=== PATIENT | female | born 1995 | race Caucasian/White ===

== ENCOUNTER 2024-11-23 08:17 | Emergency (ER) | payer BC, SELFPAY ==
[2024-11-23 08:18] VITALS: BP 134/90
--- NOTE | 2024-11-23 08:26 | ED.GENMED ---
History of Present Illness
General
Chief Complaint: Abdominal Symptoms
Time Seen by Provider: 11/23/24 08:26
History of Present Illness
History of Present Illness:
TIME OF INITIAL ENCOUNTER: 8:30 AM
HPI: Patient presents with vomiting and diarrhea over the last 8 hours. She had a cheese pizza last night around 8 PM. Boyfriend did not have the same thing to eat. At 11 PM, her symptoms started. She vomited about every 15 minutes all night
long. She feels very dehydrated. She has also been having some epigastric discomfort that she thinks is related to all the vomiting. She has been having diarrhea as well. She also has some lower discomfort as well. She called her primary care
doctor who wanted her to come in here for further evaluation.
EXAM:
GENERAL: Well appearing but appears slightly uncomfortable
HEENT: Dry oral mucosa
CARDIOVASCULAR: No murmurs, tachycardic heart rate, regular rhythm, No chest wall tenderness
PULMONARY: No respiratory distress, breath sounds are clear and equal
ABDOMEN: Soft with no peritoneal signs, minimal epigastric tenderness, elevated BMI
NEUROLOGIC: Excellent strength all extremities, no coordination deficits
PSYCHIATRIC: Appropriate mental status, normal insight and judgement
EXTREMITIES: Nontender, no edema, moves all extremities equally
SKIN: No rash, no lesions
NUMBER AND COMPLEXITY OF PROBLEMS ADDRESSED AT THE ENCOUNTER
� Chronic conditions affecting care: WPW
� Acute Exacerbation and/or Progression of Chronic Illness: This is an acute problem
� Differential Diagnosis includes: Dehydration, CORONA, viral gastroenteritis, foodborne illness, GERD, esophagitis, very low suspicion for appendicitis as pain is upper
AMOUNT AND/OR COMPLEXITY OF DATA TO BE REVIEWED AND ANALYZED
� I performed an independent evaluation of and my interpretation is:
EKG: Sinus 124, no clear evidence for WPW, RSR prime pattern with associated ST abnormality
CT:
X-rays:
Laboratory Studies: White count is 16.4, hemoglobin is 15.5, bicarb is low at 18, hCG negative
Other:
� Review of other/old records: EKG from 06/28/2020 suggested WPW (delta wave)
� Clinical information was obtained by an independent historian: I spoke to boyienjad at bedside
� Prescriptions/Medications Considered but not given:
� Further testing considered but not performed: See below
RISK OF COMPLICATIONS AND/OR MORBIDITY OR MORTALITY OF PATIENT MANAGEMENT
� Social determinants of health affecting care: Lives at home
� Discussion with other providers:
� Escalation of care including admission/observation vs risk of discharge considered: The patient primarily has vomiting with some diarrhea. She has mild epigastric pain and tenderness. She is given fluids, Zofran, Toradol, and
Pepcid. She arrived tachycardic and appears somewhat dehydrated.
ANY OTHER UPDATES:
9:40 AM: I reassessed patient. The patient tells me that she now feels 'infinitely' better. She appears comfortable. She did receive fluids and heart rate has improved. She does prefer to have a prescription for Zofran at home. Bicarb is noted
to be low. Leukocytosis noted but overall she is significant proved therefore we will hold off on imaging studies.
Past History
Past History
ED Past Medical History: Other ([id number])
ED Past Surgical History: Cardiac (AV canal repair)
Social History
Tobacco: Non-smoker
Alcohol: Occasional
Drug: None
Personal: Single
Living: with family
Employment: Not employed
Phy Exam
Physical Exam
Physical Exam:
See HPI
Course
Orders/Labs/Results
Orders:
Orders
11/23/24 08:21
EKG [Electrocardiogram (*1)] Urgent
Reason for Study: Palpitations
EKG- Treatment ONCE
11/23/24 08:28
0.9% Sodium Chloride 1000 ml [Nss] 1,000 ml IV BOLUS
11/23/24 08:29
Test Result ONCE
11/23/24 08:42
Complete Blood Count/With Diff Urgent
Comprehensive Metabolic Panel Urgent
HCG, Serum Qualitative Screen Urgent
Lipase Urgent
11/23/24 08:56
Famotidine [Pepcid] 20 mg IV NOW STA
Ketorolac [Toradol] 15 mg IV NOW STA
Ondansetron Injectable [Zofran] 4 mg IV NOW STA
Abnormal Lab Results
11/23/24
08:42
WBC 16.4 H 10^3/uL
(4.8-10.8)
Abs Immat Gran (auto) 0.1 H 10^3/uL
(0-0.05)
Absolute Neuts (auto) 15.3 H 10^3/uL
(1.4-6.5)
Absolute Lymphs (auto) 0.2 L 10^3/uL
(1.2-3.4)
Absolute Monos (auto) 0.7 H 10^3/uL
(0.1-0.6)
Immature Gran % 0.6 H %
(0-0.5)
Neutrophils % 93.6 H %
(42.2-75.2)
Lymphocytes % 1.3 L %
(20.5-51.1)
Carbon Dioxide 18 L mmol/L
(22-30)
Glucose 198 H mg/dl
(70-99)
Total Protein 8.4 H g/dl
(6.3-8.2)
Albumin 5.2 H g/dl
(3.5-5.0)
11/23/24 08:42
11/23/24 08:42
Vital Signs
Initial and Last Documented VS:
Initial Vital Signs
Temp Pulse Resp BP Pulse Ox
37.0 C 141 18 134/90 98
11/23/24 08:18 11/23/24 08:18 11/23/24 08:18 11/23/24 08:18 11/23/24 08:18
Last Documented Vital Signs
Temp Pulse Resp BP Pulse Ox
37.0 C 117 25 122/80 99
11/23/24 08:18 11/23/24 09:30 11/23/24 09:30 11/23/24 09:00 11/23/24 09:30
*Critical Care Note
Total Time (30-74mins, 75-104mins- exclusive of procedures): Not Applicable
ED Attending Note
-
Portions of this chart may have been created with voice recognition software.� Occasional wrong word or��sound alike� substitutions may have occurred due to the inherent limitations of voice recognition software.
Discharge Plan
Departure
Patient Disposition: Home (Routine Discharge)
Date of Disposition: 11/23/24
Time of Disposition: 09:48
Patient with high blood pressure during this ER visit?: Yes
Discharge Problem:
Nausea vomiting and diarrhea
Instructions: Dehydration, Adult (DC), Nausea and Vomiting, Adult (DC), BLOOD PRESSURE
Prescriptions:
New
ondansetron HCl 4 mg tablet
4 mg PO Q6H PRN (Reason: nausea and vomiting) Qty: 14 0RF
Referrals:
Shana Salas CRNP [Family Provider] -
Activity Restrictions/Additional Instructions:
Your white blood cell count is high at 16.4 and your bicarbonate level is low at 18. Low bicarbonate level suggest dehydration. Of note your glucose level is also high at 198. I recommend that you have follow-up with your primary care doctor
regarding the high glucose level. Your liver and pancreas numbers were normal. I am sending a prescription for Zofran to your pharmacy. Return here if worse or other concerns.
Interventions
Interventions:
*Risk Screen - Suicide Last Done: 11/23/24 08:18
*General Assessment Last Done: 11/23/24 08:18
*Neglect/Abuse Screening Last Done: 11/23/24 08:38
*ED- Fall Risk Assessment Last Done: 11/23/24 08:18
*ED COVID-19 Vaccine History Last Done: 11/23/24 08:18
JO-Hgjobw-Mvrobetshg Assessment Last Done: 11/23/24 08:38
Discharge Date and Time
Print Language: DANISH
[2024-11-23 08:30] VITALS: BP 113/49
[2024-11-23 08:38] VITALS: BMI 33.0
[2024-11-23] MEDS: NSS 1000 IV (08:41)
[2024-11-23 09:00] VITALS: BP 122/80
[2024-11-23 09:00] LABS: % Basophils 0.3 % (0-2); % Eosinophils 0.2 % (0-6); % Immature Granulocytes 0.6 % (0-0.5); % Lymphocytes 1.3 % (20.5-51.1); % Neutrophils 93.6 % (42.2-75.2); Absolute Basophils 0.1 10^3/uL (0-0.2); Absolute Immature Granulocytes 0.1 10^3/uL (0-0.05); Absolute Lymphocytes 0.2 10^3/uL (1.2-3.4); Absolute Monocytes 0.7 10^3/uL (0.1-0.6); Absolute Neutrophils 15.3 10^3/uL (1.4-6.5); Hematocrit 44.8 % (37.0-47.0); Hemoglobin 15.5 g/dL (12.0-16.0); Mean Corp Hgb Conc. 34.6 g/dL (33.0-37.0); Mean Corpuscular Hgb 29.9 pg (27.0-31.0); Mean Corpuscular Volume 86.3 fL (81.0-99.0); Nucleated Red Blood Cells % 0 %; Platelet Count 328 10^3/uL (130-400); Red Blood Cell Count 5.19 10^6/uL (4.20-5.40); Red Cell Dist. Width 12.6 % (11.5-14.5); White Blood Cell Count 16.4 10^3/uL (4.8-10.8)
[2024-11-23 09:04] LABS: HCG, Serum Qualitative Screen Negative
[2024-11-23 09:06] LABS: ALT (SGPT) 29 U/L (0-35); AST (SGOT) 29 U/L (14-36); Albumin 5.2 g/dl (3.5-5.0); Alkaline Phosphatase 89 U/L (38-126); Blood Urea Nitrogen 17 mg/dl (7-17); Calcium 10.2 mg/dl (8.4-10.2); Carbon Dioxide 18 mmol/L (22-30); Chloride 102 mmol/L (98-107); Estimated Creatinine Clearance > 125 ml/min; Glucose 198 mg/dl (70-99); Lipase 86 U/L (23-300); Potassium 4.5 mmol/L (3.5-5.1); Sodium 137 mmol/L (135-145); Total Bilirubin 1.1 mg/dl (0.2-1.3); Total Protein 8.4 g/dl (6.3-8.2); eGFR > 60.00
[2024-11-23] MEDS: TORADOL 15 MG IV (09:09)
[2024-11-23] MEDS: ZOFRAN 4 MG IV (09:09)
[2024-11-23] MEDS: PEPCID 20 MG IV (09:09)
== END 2024-11-23 10:14 | disposition home or self-care (01) ==
LOC: EMR 08:17
PROVIDERS: EMERGENCY PHYSICIAN Emergency Medicine; FAMILY PHYSICIAN Nurse Practitioner
DX: R11.2 Nausea with vomiting, unspecified (principal); R19.7 Diarrhea, unspecified; R10.30 Lower abdominal pain, unspecified; R10.13 Epigastric pain; R00.0 Tachycardia, unspecified; R03.0 Elevated blood-pressure reading, without diagnosis of hypertension; I45.6 Pre-excitation syndrome
CPT/HCPCS: 99284; 96374; 96375 ×2; 96361; 80053; 83690; 84703; 85025; 93005